=== PATIENT | female | born 1940 | race Caucasian/White ===

== ENCOUNTER 2021-08-07 13:03 | Emergency (ER) | payer MEDICARE, BC, SELFPAY ==
[2021-08-07 13:06] VITALS: BP 153/81; PULSE 87; RESP 15; TEMP 36.4; O2SAT 96; BMI 22.6
--- NOTE | 2021-08-07 13:37 | EKG12_ITS ---
Test Reason : HEAD INJURY Blood Pressure : / mmHG Vent. Rate : 084 BPM Atrial Rate : 084 BPM P-R Int : 118 ms QRS Dur : 084 ms QT Int : 384 ms P-R-T Axes : 080 052 057 degrees QTc Int : 453 ms Sinus rhythm with occasional Premature ventricular complexes Nonspecific ST abnormality Abnormal ECG Confirmed by MARLEN MUÑOZ, ANDRAE ([id number]), slot editor JENNIFER LOVE ([id number]) on 08/10/2021 9:52:41 AM Referred By: ALONZO Confirmed By:ANDRAE GEE MD
--- NOTE | 2021-08-07 13:37 | CT_ITS ---
EXAM: CT CERVICAL SPINE WITHOUT INTRAVENOUS CONTRAST : 1940 CLINICAL INDICATION: Trauma TECHNIQUE: Helically acquired images were obtained of the cervical spine without intravenous contrast. 2D reformatted images were reviewed. This CT exam was performed using one or more of the following dose reduction techniques: automated exposure control, adjustment of the mA and/or kV according to patient size, and/or use of iterative reconstruction technique. This report was created using [employer] report generation technology. COMPARISON: None. FINDINGS: VERTEBRAE: Unremarkable. No fracture. No traumatic subluxation. No discrete lytic or blastic abnormality. Normal alignment. Normal craniocervical junction and cervicothoracic junction. DISCS/SPINAL CANAL/NEURAL FORAMINA: Diffuse disc space narrowing and facet arthropathy. SOFT TISSUES: Unremarkable. No prevertebral soft tissue swelling. LYMPH NODES: Unremarkable. No cervical adenopathy. LUNG APICES: Unremarkable as visualized. Clear. CT/Spine Cervical without Contras IMPRESSION: 1. No acute abnormality. 2. Moderate diffuse spondylosis. Individualized dose optimization techniques were used for this CT. at 1450 Reported and signed by: Tanner Navarro MD Electronically Signed: Tanner Navarro MD at 14:49 EST Tel , Service support ,
--- NOTE | 2021-08-07 13:37 | CT_ITS ---
EXAM: CT HEAD WITHOUT INTRAVENOUS CONTRAST : 1940 CLINICAL INDICATION: Trauma TECHNIQUE: Multiple axial images were obtained of the head without intravenous contrast. This CT exam was performed using one or more of the following dose reduction techniques: automated exposure control, adjustment of the mA and/or kV according to patient size, and/or use of iterative reconstruction technique. This report was created using [email or web address] report generation technology. COMPARISON: None. FINDINGS: BRAIN AND EXTRA-AXIAL SPACES: Unremarkable. No intra- or extra-axial hemorrhage. No evidence of acute infarct. No intracranial mass or mass effect. There is preservation of the padilla/white matter interface. Posterior fossa structures are unremarkable. Ventricles are appropriate for age. No hydrocephalus. Basal cisterns are patent. BONES/JOINTS: Unremarkable. No discrete lytic or blastic abnormalities. SINUSES: Unremarkable as visualized. Clear. MASTOID AIR CELLS: Unremarkable. Clear. ORBITS: Visualized globes, extraocular muscles, optic nerves and retrobulbar fat appear unremarkable. CT/Brain/Head without Contrast IMPRESSION: No acute abnormality. Individualized dose optimization techniques were used for this CT. at 1449 Reported and signed by: Tanner Navarro MD Electronically Signed: Tanner Navarro MD at 14:48 EST Tel , Service support ,
--- NOTE | 2021-08-07 13:37 | RAD_ITS ---
History: Injury/Pain Right shoulder 5 views: Findings: No fracture or subluxation. Narrowing and bony spurring of the glenohumeral joint noted. Similar degenerative changes of the AC joint. IMPRESSION: No acute abnormality. Osteoarthritis. at 1453 Reported and signed by: Tanner Navarro MD Electronically Signed: Tanner Navarro MD at 14:52 EST Tel , Service support , RAD/Shoulder min 2 Views
--- NOTE | 2021-08-07 13:41 | RAD_ITS ---
History: trauma Left scapula 2 views: Findings: No fracture or subluxation. Joint spaces and soft tissues are normal. IMPRESSION: No acute abnormality. at 1451 Reported and signed by: Tanner Navarro MD Electronically Signed: Tanner Navarro MD at 14:50 EST Tel , Service support , [facility]/Gian[facility]anco
[2021-08-07 13:43] VITALS: O2SAT 99
[2021-08-07] MEDS: 0.9% Normal Saline 1,000 ML 999 ML IV (14:06)
[2021-08-07] MEDS: Diphth,Pertuss(Acell),Tet Vac 0.5 ML Vial IM (14:06)
--- NOTE | 2021-08-07 14:13 | EX.ED.GENINJ ---
HPI History of Present Illness Chief Complaint: Head Injury Informant: patient and family Narrative Narrative: Patient is a 80-year-old female with history of Parkinson's, syncope and hypertension presenting after syncopal episode. Patient states she went to the bathroom to wash up when she fainted. She was walking and then woke up on the ground. She did hit her head. Patient flew from [place] to [place] yesterday to visit family for the holidays. Her son is at the bedside states that is a big deal for her. Patient is complaining of some right posterior shoulder pain as well as pain to the back of her right head. She is not on any blood thinners. She states has been compliant with her medications. Denies any swelling of her legs. Denies any shortness of breath or difficulty breathing. No other complaints at this time. Tetanus Immunization: Unknown [facility] Medical History (Updated 08/07/21 @ 16:[address] Twyla Prakash DO) Hx of syncope Parkinson disease Home Medications carbidopa-levodopa 1 tab PO BID 08/07/21 [History Last Taken Unknown] carbidopa-levodopa 1 tab PO TID 08/07/21 [History Last Taken Unknown] duloxetine 60 mg PO DAILY 08/07/21 [History Last Taken Unknown] fludrocortisone 0.1 mg PO DAILY 08/07/21 [History Last Taken Unknown] midodrine 2.5 mg PO TID 08/07/21 [History Last Taken Unknown] sennosides [senna] 8.6 mg PO DAILY 08/07/21 [History Last Taken Unknown] Allergy/AdvReac Type Severity Reaction Status Date / Time animal dander Allergy Mild Other Verified 08/07/21 13:06 Social History Smoking Status: Never smoker ROS ROS ED Constitutional Constitutional ED: Denies chills or fever(s) Eyes Eyes: Denies blurry vision or change in vision ENT ENT ED: Denies ear pain, rhinorrhea or sore throat Cardiovascular Cardiovascular: Reports other Details: Syncope ; Denies chest pain or palpitations Respiratory/Chest Respiratory/Chest: Denies cough or dyspnea Gastrointestinal Gastrointestinal: Denies abdominal pain, nausea or vomiting Genitourinary Genitourinary ED: Denies dysuria or hematuria Musculoskeletal Musculoskeletal: Reports other Details: Right shoulder pain ; Denies arthralgias or myalgias Integumentary Denies rash Neurologic Neurologic: Reports headache(s); Denies weakness Psychiatric Psychiatric: Denies anxiety or depression EXAM Physical Exam Const Vital Signs: 08/07/21 13:06 08/07/21 13:43 08/07/21 14:30 Temperature 97.6 F L Temperature Source Oral Pulse Rate 87 96 Respiratory Rate 15 20 H Respiratory Effort Normal Non-Labored Respiratory Depth Normal Respiratory Pattern Normal Blood Pressure 153/81 H 138/99 H Blood Pressure Mean 105 112 Pulse Ox 96 99 95 Oxygen Delivery Method Room Air Room Air Room Air 08/07/21 16:00 Temperature Temperature Source Pulse Rate 89 Respiratory Rate 20 H Respiratory Effort Respiratory Depth Respiratory Pattern Blood Pressure 157/77 H Blood Pressure Mean 103 Pulse Ox 96 Oxygen Delivery Method Room Air Positive well nourished and well developed General Appearance ED: well developed HEENT Reports TM's clear HEENT Narrative: Patient is a 1 cm full-thickness laceration of the right posterior scalp. No active bleeding. No cephalhematoma appreciated with it. No hemotympanum. No septal hematoma. No malocclusion. trauma Tympanic Membrane ED: Yes TM's clear Eyes PERRL and EOMs intact bilaterally Neck full ROM General: Negative for tenderness Chest Wall inspection of chest normal Resp normal respiratory effort and clear to auscultation bilaterally Cardio regular rhythm Cardio Narrative: 2+ bilateral radial and DP pulses Rate: regular rate Heart Sounds: murmur GI normal to inspection, nondistended, normoactive bowel sounds Palpation: soft Back/Spine normal to inspection Back/Spine Narrative: No midline tenderness. Extremity Extremity Narrative: Range of motion intact in all extremities. Pelvis is stable. Patient has tenderness palpation of the right scapula. Range of motion of the shoulder is intact. No other bony tenderness. No pain with logroll of the lower extremities. Neuro oriented x3, moves all extremities, no focal motor deficits and no sensory deficits noted Neuro Narrative: Patient is tremulous and attributes that to her Parkinson's disease Sensorium / Orientation: alert Skin Skin Narrative: 1 cm full-thickness laceration to posterior right scalp. In addition patient has healing ecchymosis to her left forearm/wrist from prior fall. MDM MDM MDM Narrative Medical decision making narrative: Patient evaluated after syncopal episode. She hit her head. CT of the brain and C-spine did not show any acute process. Patient does have a small laceration was repaired with Dermabond using hair apposition technique after it is cleansed with normal saline and then chlorhexidine. Work-up is remarkable for mildly low potassium of 3.3. Urinalysis is more consistent with contamination. She is a mild anemia 11.4. As patient has never been to this hospital before do not have any prior records. Tetanus is updated. She remained hemodynamically stable in the emergency room. She is ambulated in the ED. I will discharge her home with strict return precautions. Patient and son are agreeable to this plan of care. Lab Data Attestation: I reviewed the patient's lab results. Labs: Laboratory Results - last 24 hr 08/07/21 08/07/21 08/07/21 14:10 14:10 15:20 WBC 6.9 RBC 4.36 Hgb 11.4 L Hct 35.3 L MCV 81.0 MCH 26.1 L MCHC 32.3 RDW Std Deviation 45.6 H RDW Coeff of Sofia 15.4 H Plt Count 281 MPV 10.2 Immature Gran % (Auto) 0.300 Neut % (Auto) 70.5 H Lymph % (Auto) 14.4 L [place] % (Auto) 9.2 Eos % (Auto) 4.7 Baso % (Auto) 0.9 Absolute Neuts (auto) 4.8 Absolute Lymphs (auto) 0.99 Nucleated RBC % 0 Sodium 142 Potassium 3.3 L Chloride 105 Carbon Dioxide 30.0 Anion Gap 7 BUN 19 H Creatinine 0.67 Estim Creat Clear Calc 44.36 Est GFR (MDRD) Af Amer 109 Est GFR (MDRD) Non-Af 90 BUN/Creatinine Ratio 28.4 H Glucose 97 Calcium 8.9 Total Bilirubin 0.40 AST 20 ALT 11 L Alkaline Phosphatase 85 Total Protein 7.1 Albumin 3.5 Globulin 3.6 Albumin/Globulin Ratio 1.0 Urine Color Yellow Urine Clarity Clear Urine pH 7.0 Ur Specific [place] 1.010 Urine Protein 15 H Urine Glucose (UA) Normal Urine Ketones Negative Urine Occult Blood 10 H Urine Nitrite Negative Urine Bilirubin Negative Urine Urobilinogen Normal Ur Leukocyte Esterase 100 H Urine RBC 0-5 SEEN Urine WBC 5-10 SEEN Ur Squamous Epith Cells 0-5 SEEN Amorphous Sediment 1+ Urine Bacteria 0 SEEN Hyaline Casts 5-10 SEEN Urine Mucus 0 SEEN Radiography X-Ray: Read by ED Physician, Read by Radiologist, No Fracture and Normal Bony Alignment Diagnostic Testing: Clinical Impression(s) from Imaging Studies Brain CT 08/07/21 13:37 IMPRESSION: No acute abnormality. Individualized dose optimization techniques were used for this CT. at 1449 Reported and signed by: Tanner Navarro MD Electronically Signed: Tanner Navarro MD at 14:48 EST Tel , Service support , Cervical Spine CT 08/07/21 13:37 IMPRESSION: 1. No acute abnormality. 2. Moderate diffuse spondylosis. Individualized dose optimization techniques were used for this CT. at 1450 Reported and signed by: Tanner Navarro MD Electronically Signed: Tanner Navarro MD at 14:49 EST Tel , Service support , Shoulder X-Ray 08/07/21 13:37 Scapula X-Ray 08/07/21 13:41 Rhythm Strip Rhythm Strip: Sinus Rhythm Rate: 84 Ectopy: PVC(s) EKG Initial EKG: Attestation: I personally reviewed and interpreted this EKG as follows: Interpretation: Sinus Rhythm Comments: Normal sinus rhythm at a rate of 84 with PVC Normal intervals Normal axis Normal ST segments Prior EKG tracings: not available for review Prior: No Prior Discharge Plan Triage Chief Complaint: Head Injury Other Complaint: Fall ED Provider: Twyla Prakash Dx/Rx/DC Orders Clinical Impression: Syncope and collapse, Laceration of scalp, Hypokalemia Instructions: ED Head Injury (Adult), ED Hypokalemia, ED Fainting, Uncertain Cause, ED Laceration: Skin Adhesive Prescriptions: No Action midodrine 2.5 mg tablet 2.5 mg PO TID RF: 0 carbidopa-levodopa 25-100 mg tablet 1 tab PO TID RF: 0 fludrocortisone 0.1 mg tablet 0.1 mg PO DAILY RF: 0 duloxetine 30 mg capsule,delayed release(DR/EC) 60 mg PO DAILY RF: 0 sennosides [senna] 8.6 mg tablet 8.6 mg PO DAILY RF: 0 carbidopa-levodopa 25-100 mg tablet extended release 1 tab PO BID RF: 0 Referrals: Ken Cavazos [Other] Activity Restrictions/Additional Instructions: Eat foods are high in potassium. Return if you have any recurrent symptoms. Make sure you are drinking plenty of fluids. Disposition Disposition: Home, Self Care Discharge Date/Time: 08/07/21 17:23
[2021-08-07 14:18] LABS: Absolute Lymphocyte Count 0.99 X10^3/uL (0.83-4.51); Absolute Neutrophil Count 4.8 X10^3/uL (2.0-7.7); Basophil# 0.06 X10^3/uL; Basophil% 0.9 % (0-1); Eosinophil# 0.32 X10^3/uL; Eosinophils% 4.7 % (0-5); Hematocrit 35.3 % (37-47); Hemoglobin 11.4 g/dL (12.0-15.0); Lymphocyte # 0.99 X10^3/ul (0.83-4.51); Lymphocyte % 14.4 % (19-41); Mean Corp Hgb Conc 32.3 g/dL (32-36); Mean Corpuscular Hgb 26.1 pg (27.0-32.0); Mean Platelet Vol. 10.2 fl (6.2-12.0); Monocyte# 0.63 X10^3/uL; Monocyte% 9.2 % (0-10); NRBC Flagged by Analyzer 0 % (0-5); Neutrophil # 4.84 X10^3/uL (2.7-7.7); Neutrophil % 70.5 % (47-70); Platelet Count 281 K/mm3 (150-450); RBC Distribution Width CV 15.4 % (11.6-14.6); RBC Distribution Width SD 45.6 fl (35.1-43.9); Red Blood Count 4.36 M/mm3 (4.2-5.4); White Blood Count 6.9 K/mm3 (4.4-11.0)
[2021-08-07 14:30] VITALS: BP 138/99; PULSE 96; RESP 20; O2SAT 95
[2021-08-07 14:32] LABS: AST(SGOT) 20 U/L (15-37); Alanine Aminotransfer ALT/SGPT 11 U/L (13-56); Albumin, Serum 3.5 g/dL (3.2-5.0); Alkaline Phosphatase 85 U/L (45-117); Anion Gap 7 (5-15); BUN 19 mg/dL (7-18); BUN/Creat Ratio 28.4 RATIO (10-20); Calcium,Total 8.9 mg/dL (8.5-10.1); Chloride 105 mmol/L (98-107); Creatinine, Serum 0.67 mg/dL (0.55-1.02); EST Glomerular Filtration Rate 90 mL/min (>60); Est Glom Filt Rate - Afr Amer 109 mL/min (>60); Estimated Creatinine Clearance 44.36 ml/min; Globulin 3.6 g/dL (2.2-4.2); Glucose 97 mg/dL (74-106); Potassium 3.3 mmol/L (3.5-5.1); Protein, Total 7.1 g/dL (6.4-8.2); Sodium Level 142 mmol/L (136-145)
[2021-08-07] MEDS: Midodrine HCl 5 MG Tablet 2.5 MG PO (14:46)
[2021-08-07] MEDS: Carbidopa/Levodopa 25/100 Tablet PO (14:48)
[2021-08-07 15:27] LABS: Bacteria 0 SEEN /hpf (None Seen); Mucous, Urine 0 SEEN /hpf (<or=2+)
[2021-08-07 15:38] LABS: Color, Urine Yellow (Yellow); Glucose, Dipstick Normal (Normal); Ketone-Dipstick Negative (Negative); Leukocyte Esterase-Dipstick 100 /ul (Negative); Nitrite-Dipstick Negative (Negative); Occult Blood-Urine 10 /ul (Negative); Protein-Dipstick 15 mg/dl (Negative); Urine Bilirubin Dipstick Negative (Negative); Urine Clarity Clear (Clear); Urine Urobilinogen Normal (Normal)
[2021-08-07 15:49] LABS: Hyaline Cast 5-10 SEEN /lpf (0-5); Squamous Epithelial Cells - UA 0-5 SEEN /hpf (5-10); White Blood Cells 5-10 SEEN /hpf (0-5)
[2021-08-07 15:50] LABS: Amorphous Sediment 1+; Red Blood Cells-Urine 0-5 SEEN /hpf (0-5)
[2021-08-07 16:00] VITALS: BP 157/77; PULSE 89; RESP 20; O2SAT 96
[2021-08-07] MEDS: Potassium Chloride Oral Soln 20 MEQ/15 ML UDC PO (16:01)
--- NOTE | 2021-08-07 17:19 | ED.RN ---
pt walked with assistance from room to bathroom without complication.
--- NOTE | 2021-08-07 17:22 | ED.RN ---
PT AMBULATED DOWN HALLWAY TO BATHROOM WITHOUT DIFFICULTY. TOILETED HERSELF WITHOUT ASSISTANCE FROM THIS RN.
== END 2021-08-07 17:23 | disposition home or self-care (01) ==
PROVIDERS: Emergency Provider Emergency Medicine
DX: S01.01XA Laceration without foreign body of scalp, initial encounter (principal); R55 Syncope and collapse; E87.6 Hypokalemia; Y93.01 Activity, walking, marching and hiking; X58.XXXA Exposure to other specified factors, initial encounter; Z79.899 Other long term (current) drug therapy
CPT/HCPCS: 70450; 72125; 73010; 73030; 80053; 81001; 85025; 87086; 87088; 87426; 90715; 93005; 96372; 99285; J7030